=== PATIENT | female | born 1965 | race Caucasian/White ===

== ENCOUNTER 2017-10-28 07:01 | Emergency (ER) | payer OTHER | END 2017-10-28 07:44 | disposition home or self-care (01) | LOC: BURERS 07:01 | DX: G89.29 Other chronic pain (principal); M54.5 Low back pain; M06.9 Rheumatoid arthritis, unspecified; J44.9 Chronic obstructive pulmonary disease, unspecified; E11.9 Type 2 diabetes mellitus without complications; E78.5 Hyperlipidemia, unspecified; I10 Essential (primary) hypertension; F32.9 Major depressive disorder, single episode, unspecified; F17.210 Nicotine dependence, cigarettes, uncomplicated; Z79.899 Other long term (current) drug therapy | CPT/HCPCS: 99283 ==

== ENCOUNTER 2018-08-03 09:59 | Emergency (ER) | payer OTHER | END 2018-08-03 10:23 | disposition home or self-care (01) | LOC: BURERS 09:59 | DX: M25.50 Pain in unspecified joint (principal); G89.29 Other chronic pain; M06.9 Rheumatoid arthritis, unspecified; J44.9 Chronic obstructive pulmonary disease, unspecified; E11.9 Type 2 diabetes mellitus without complications; E78.5 Hyperlipidemia, unspecified; I10 Essential (primary) hypertension; F41.9 Anxiety disorder, unspecified; F32.9 Major depressive disorder, single episode, unspecified; F43.10 Post-traumatic stress disorder, unspecified; F17.210 Nicotine dependence, cigarettes, uncomplicated; Z79.899 Other long term (current) drug therapy; Z79.84 Long term (current) use of oral hypoglycemic drugs | CPT/HCPCS: 99283 ==

== ENCOUNTER 2019-07-13 21:35 | Emergency (ER) | payer OTHER ==
[2019-07-13] MEDS ORDERED: Diazepam 5 MG TAB ONE (21:51)
== END 2019-07-13 22:12 | disposition home or self-care (01) ==
LOC: BURERS 21:35
DX: F41.9 Anxiety disorder, unspecified (principal); J44.9 Chronic obstructive pulmonary disease, unspecified; E11.9 Type 2 diabetes mellitus without complications; F32.9 Major depressive disorder, single episode, unspecified; F17.210 Nicotine dependence, cigarettes, uncomplicated
CPT/HCPCS: 99283

== ENCOUNTER 2019-07-14 06:45 | Emergency (ER) | payer OTHER ==
[2019-07-14] MEDS ORDERED: ALPRAZolam 0.5 MG TAB ONE (06:50)
== END 2019-07-14 07:07 | disposition home or self-care (01) ==
LOC: BURERS 06:45
DX: F41.9 Anxiety disorder, unspecified (principal); M06.9 Rheumatoid arthritis, unspecified; J44.9 Chronic obstructive pulmonary disease, unspecified; E11.9 Type 2 diabetes mellitus without complications; E78.5 Hyperlipidemia, unspecified; E78.00 Pure hypercholesterolemia, unspecified; I10 Essential (primary) hypertension; M79.7 Fibromyalgia; F32.9 Major depressive disorder, single episode, unspecified; F43.10 Post-traumatic stress disorder, unspecified; F17.210 Nicotine dependence, cigarettes, uncomplicated; Z79.899 Other long term (current) drug therapy
CPT/HCPCS: 99283

== ENCOUNTER 2019-09-13 08:18 | Emergency (ER) | payer OTHER ==
[2019-09-13] MEDS ORDERED: Lorazepam 0.5 MG TAB ONE (08:43)
== END 2019-09-13 08:48 | disposition home or self-care (01) ==
LOC: BURERS 08:18
DX: F12.23 Cannabis dependence with withdrawal (principal); F41.1 Generalized anxiety disorder; M06.9 Rheumatoid arthritis, unspecified; J44.9 Chronic obstructive pulmonary disease, unspecified; E11.9 Type 2 diabetes mellitus without complications; E78.5 Hyperlipidemia, unspecified; E78.00 Pure hypercholesterolemia, unspecified; I10 Essential (primary) hypertension; F32.9 Major depressive disorder, single episode, unspecified; F43.10 Post-traumatic stress disorder, unspecified; F41.9 Anxiety disorder, unspecified; F17.210 Nicotine dependence, cigarettes, uncomplicated; Z79.899 Other long term (current) drug therapy
CPT/HCPCS: 99283

== ENCOUNTER 2020-04-12 13:12 | Emergency (ER) | payer OTHER ==
[2020-04-12] MEDS ORDERED: predniSONE 20 MG TAB ONE (13:52)
[2020-04-12] MEDS ORDERED: Fentanyl 100 MCG/2 ML VIAL ONE (15:14)
[2020-04-12] MEDS ORDERED: HYDROcodone/Acetaminophen 5/325 mg Tablet ONE (15:19)
== END 2020-04-12 15:35 | disposition home or self-care (01) ==
LOC: BURERS 13:12
DX: M25.50 Pain in unspecified joint (principal); J44.9 Chronic obstructive pulmonary disease, unspecified; M06.9 Rheumatoid arthritis, unspecified; E78.5 Hyperlipidemia, unspecified; E78.00 Pure hypercholesterolemia, unspecified; I10 Essential (primary) hypertension; F17.210 Nicotine dependence, cigarettes, uncomplicated
CPT/HCPCS: 96372; 99282; J3010; J7512

== ENCOUNTER 2020-05-14 10:38 | Emergency (ER) | payer OTHER ==
[2020-05-14] MEDS ORDERED: methylPREDNISolone Sod Succ/PF 125 MG/2 ML VIAL ONE (10:58)
== END 2020-05-14 11:07 | disposition home or self-care (01) ==
LOC: BURERS 10:38
DX: M79.7 Fibromyalgia (principal); J44.9 Chronic obstructive pulmonary disease, unspecified; E11.9 Type 2 diabetes mellitus without complications; E78.5 Hyperlipidemia, unspecified; E78.00 Pure hypercholesterolemia, unspecified; I10 Essential (primary) hypertension; M06.9 Rheumatoid arthritis, unspecified; F17.210 Nicotine dependence, cigarettes, uncomplicated; Z79.899 Other long term (current) drug therapy
CPT/HCPCS: 96372; 99283; J2930

== ENCOUNTER 2020-07-01 08:51 | Emergency (ER) | payer OTHER | END 2020-07-01 09:12 | disposition home or self-care (01) | LOC: BURERS 08:51 | DX: R07.81 Pleurodynia (principal); J44.9 Chronic obstructive pulmonary disease, unspecified; M06.9 Rheumatoid arthritis, unspecified; E11.9 Type 2 diabetes mellitus without complications; E78.5 Hyperlipidemia, unspecified; E78.00 Pure hypercholesterolemia, unspecified; I10 Essential (primary) hypertension; M79.7 Fibromyalgia; F17.210 Nicotine dependence, cigarettes, uncomplicated; Z79.899 Other long term (current) drug therapy | CPT/HCPCS: 99281 ==

== ENCOUNTER 2022-02-11 02:07 | Emergency (ER) | payer OTHER ==
[2022-02-11] MEDS ORDERED: ALPRAZolam 0.5 MG TAB ONE (02:32)
== END 2022-02-11 02:40 | disposition home or self-care (01) ==
LOC: BURERS 02:07
DX: F41.9 Anxiety disorder, unspecified (principal); F15.10 Other stimulant abuse, uncomplicated; Z79.899 Other long term (current) drug therapy
CPT/HCPCS: 99283